=== PATIENT | female | born 1985 | race African-American/Black ===

== ENCOUNTER 2019-10-25 07:27 | Emergency (ER) | payer SELFPAY ==
[~2019-10-25] VITALS: Ht 177.8 cm; Wt 50.0 kg
--- NOTE | 2019-10-25 07:27 | NUR ---
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
--- NOTE | 2019-10-25 07:50 | NUR ---
PT CONTINUES TO BE VERY AGITATED, ARGUING WITH VISITOR STATING "JUST GO, YOU'RE NOT MY DAD!", PT FREQUENTLY CALLING/REFERRING TO VISITOR "DADDY", PT & VISITOR TELLING EACHOTHER TO "SHUT UP", THIS RN ADVISED VISITOR TO LEAVE THE ROOM BUT PT BECAME CALMER & SAID "NO, I'M JUST MAD BECAUSE THEY BROUGHT ME HERE, I DON'T WANT TO BE HERE.", PT ALSO AMBULATED STEADILY TO BR WITHOUT VISITOR FOR UA SAMPLE & STATED SHE IS NOT FEARFUL OR FEEL ENDANGERED BY STAFF OR VISITOR, NO NEW OR OLD INJURIES NOTED; NEW ACCOUNTS REPRESENTATIVE, SUP & PA JEEVAN AWARE OF PT-VISITOR DYNAMICS.
[2019-10-25] MEDS ORDERED: POTASSIUM (07:55)
[2019-10-25] MEDS ORDERED: IRON (07:55)
[2019-10-25] MEDS ORDERED: ONDANSETRON 2MG/ML, 2ML IVPush ONE (08:00)
[2019-10-25] MEDS ORDERED: SODIUM CHLORIDE 0.9% 1,000ML IVBOLUS ONE (08:00)
[2019-10-25 08:01] VITALS: BP 117/87
--- NOTE | 2019-10-25 08:14 | NUR ---
PT LAYING ON GURNEY WITH EYES CLOSED, ABLE TO DOZE OFF, RESPONDS TO STAFF QUESTIONS & IS MORE COOPERATIVE WITH STAFF, COMFORT MEASURES PROVIDED, VISITOR AT BS, CALL LIGHT WITHIN REACH.
[2019-10-25] MEDS ORDERED: ONDANSETRON 2MG/ML, 2ML ONE (08:24)
--- NOTE | 2019-10-25 08:30 | NUR ---
PT VISITOR STATES HE IS "TRYING TO GET A HOLD OF PT FAMILY (MOM, SISTER & BROTHER) IN [place] BUT THEY AREN'T ANSWERING", VISITOR STATED HE WAS "GOING BACK TO THEIR ROOM TO SHOWER & BRING HER SOME FRESH CLOTHES" AND HAD PTS CELLPHONE IN HIS HAND, THIS RN ADVISED HIM TO LEAVE PHONE IN HER PURSE AT ROOMS HERE DO NOT HAVE PHONES, VISITOR AMENABLE TO THAT & LEFT PHONE IN PURSE, VISITOR ALSO LEFT HIS CELL PHONE NUMBER & PROVIDED PT MOM PH NUMBER UPON LEAVING ED, PT MOM PH NUMBER "NO LONGER IN SERVICE" WHEN THIS RN ATTEMPTED CONTACT.
[2019-10-25 08:33] LABS: MICROSCOPIC INDICATED
[2019-10-25 08:34] LABS: ALBUMIN 4.3 g/dL (3.4-5.0); ANION GAP 11 mmol/L (5-15); CALCIUM 9.3 mg/dL (8.5-10.1); CHLORIDE 99 mmol/L (98-107); CREATININE 0.97 mg/dL (0.55-1.02)
[2019-10-25 08:35] LABS: MEAN CORPUSCULAR HEMOGLOBIN 22.6 pg (27.0-34.8); MEAN CORPUSCULAR HGB CONC 30.4 g/dL (32.4-35.8); MEAN CORPUSCULAR VOLUME 74.5 fL (80-100); MEAN PLATELET VOLUME 8.4 fL (7.4-10.4); PLATELET COUNT 119 x10^3/uL (130-400); RED BLOOD COUNT 4.14 x10^6/uL (3.82-5.3); RED CELL DISTRIBUTION WIDTH 24.7 % (9.6-15.2)
[2019-10-25 08:36] LABS: CULTURE INDICATED? NO
[2019-10-25 08:37] LABS: AMPHETAMINE SCREEN, URINE Negative (Negative); BARBITURATE SCREEN, URINE Negative (Negative); BENZODIAZEPINE SCREEN, URINE Negative (Negative); CANNABINOID SCREEN, URINE Positive (Negative); COCAINE SCREEN, URINE Negative (Negative); METHADONE SCREEN, URINE Negative (Negative); OPIATE SCREEN, URINE Negative (Negative)
[2019-10-25 08:44] LABS: MD YES
[2019-10-25 08:46] LABS: <PLATELET ESTIMATE> DECREASED; <PLT MORPHOLOGY> NORMAL PLT MORPH; ANISOCYTOSIS 1+; BASOS#(MANUAL) 0.08 x10^3/uL (0-0.1); BASOS% (MANUAL) 1 % (0-1); LYMPH#(MANUAL) 0.38 x10^3/uL (1-3.4); LYMPHS% (MANUAL) 5 % (22-44); MICROCYTOSIS 1+; MONOS#(MANUAL) 0.53 x10^3/uL (0.3-2.7); MONOS% (MANUAL) 7 % (2-9); SEG#(MANUAL) 6.53 x10^3/uL (1.8-6.8); SEGS% (MANUAL) 87 % (42-75)
[2019-10-25 08:48] LABS: TARGET CELLS 1+
[2019-10-25 08:49] LABS: HYPOCHROMIA 1+
--- NOTE | 2019-10-25 09:02 | NUR ---
PT CONTINUES LAYING ON GURNEY WITH EYES CLOSED, ABLE TO DOZE OFF AT TIMES, RESPONDS APPROP TO STAFF, COMFORT MEASURES PROVIDED, CALL LIGHT WITHIN REACH.
[2019-10-25] MEDS ORDERED: POTASSIUM CHLORIDE 20 MEQ TAB.ER.PRT ONE (09:06)
[2019-10-25] MEDS ORDERED: POTASSIUM CHLORIDE 20 MEQ TAB.ER.PRT PO ONE (09:30)
--- NOTE | 2019-10-25 09:48 | NUR ---
Patient given discharge instructions and Rx, they have confirmed that they understand the instructions. Patient ambulatory with steady gait.
== END 2019-10-25 10:19 | disposition home or self-care (01) ==
LOC: ED 09:39
DX: R11.2 Nausea with vomiting, unspecified (principal); E87.6 Hypokalemia; R55 Syncope and collapse; E86.0 Dehydration; R80.9 Proteinuria, unspecified; R56.9 Unspecified convulsions; F17.200 Nicotine dependence, unspecified, uncomplicated; Z86.2 Personal history of diseases of the blood and blood-forming organs and certain disorders involving the immune mechanism
CPT/HCPCS: 36415; 80048; 80307; 81001; 82040; 84703; 85025; 93005; 96361; 96374; 99284; J2405; J7030